=== PATIENT | male | born 1975 | race Caucasian/White ===

== ENCOUNTER → 2020-02-14 09:07 | Outpatient (CLI) | payer OTHER, SELFPAY ==
--- NOTE | 2020-02-14 | DI.US.S_ITS ---
PROCEDURE: US ABDOMEN COMPLETE INDICATIONS: ELEVATED LIVER FUNCTION TESTS TECHNIQUE: Real-time scanning was performed of the abdominal and retroperitoneal organs, with image documentation. COMPARISON: None. FINDINGS: This study is limited by body habitus. The study is further limited by bowel gas. Liver: The liver demonstrates normal size. The liver demonstrates generalized increased echogenicity. This decreases ultrasound sensitivity for detection of hepatic masses. Gallbladder: No findings of gallstones or sludge are seen. The gallbladder wall is not thickened, measuring 3 mm or less. No specific pericholecystic fluid is seen. The sonographic Johnson sign is negative. Biliary ducts: Intrahepatic bile ducts are non-dilated. Extrahepatic bile duct caliber measures 3 mm. Normal is 6-7 mm or less in diameter, or 10 mm or less post-cholecystectomy. Pancreas: Visualized portions of the pancreas are sonographically normal. Spleen: Spleen is normal in size and homogeneous in echotexture. Kidneys: Kidneys are normal in size and echotexture. Right kidney measures 11 cm long; left kidney measures 11.1 cm long. No hydronephrosis or nephrolithiasis. No solid masses. Aorta: Visualized aorta is normal in caliber at less than 3 cm. Iliacs: Proximal common iliac arteries are normal in caliber at less than 2.5 cm. IVC: Intrahepatic inferior vena cava is patent. Miscellaneous: No free abdominal fluid. IMPRESSION: The liver demonstrates increased echogenicity. This finding is nonspecific, yet it is attributed to fatty infiltration. The gallbladder demonstrates a normal sonographic appearance. No biliary dilatation is seen. Dictated by: Anthony Ding M.D. on 02/14/2020 at 9:04 Approved by: Anthony Ding M.D. on 02/14/2020 at 9:05
== END ==
PROVIDERS: PCP Family Medicine; Referring Provider Family Medicine; Visit Provider Family Medicine
DX: R74.0 Nonspecific elevation of levels of transaminase and lactic acid dehydrogenase [LDH] (principal)
CPT/HCPCS: 76700

== ENCOUNTER → 2024-07-12 11:21 | Outpatient (CLI) | payer OTHER, SELFPAY ==
--- NOTE | 2024-07-12 11:25 | DI.RAD.S_ITS ---
PROCEDURE: XR SHOULDER LT MIN 2V INDICATIONS: [id number] TECHNIQUE: 3 views of the shoulder were acquired. COMPARISON: None. FINDINGS: Bones: No fractures or dislocations. No suspicious bony lesions. Visualized ribs appear intact. Soft tissues: No suspicious soft tissue calcifications. IMPRESSION: No acute bony abnormality. Dictated by: Taran Tijerina M.D. on 07/12/2024 at 14:30 Approved by: Taran Tijerina M.D. on 07/12/2024 at 14:30
== END ==
PROVIDERS: PCP Family Medicine; Referring Provider Family Medicine; Visit Provider Family Medicine
DX: M25.512 Pain in left shoulder (principal)
CPT/HCPCS: 73030

== ENCOUNTER → 2024-12-12 10:54 | Outpatient (CLI) | payer OTHER, SELFPAY ==
--- NOTE | 2024-12-12 10:57 | DI.RAD.S_ITS ---
PROCEDURE: XR SINUS <3V INDICATIONS: SINUSITIS TECHNIQUE: Three views of the sinuses were acquired. COMPARISON: None. FINDINGS: Sinuses: The visualized sinuses demonstrate no air-fluid levels or mucosal thickening. The visualized mastoids also appear clear. Bones: No suspicious bony lesions or visible fractures. Nasal septum is midline. IMPRESSION: No air-fluid levels to suggest acute sinusitis. Dictated by: Amparo Reed M.D. on 12/12/2024 at 16:32 Approved by: Amparo Reed M.D. on 12/12/2024 at 16:32
== END ==
PROVIDERS: PCP Family Medicine; Referring Provider Family Medicine; Visit Provider Family Medicine
DX: J01.90 Acute sinusitis, unspecified (principal)
CPT/HCPCS: 70210

== ENCOUNTER → 2025-01-06 08:36 | Outpatient (CLI) | payer OTHER, SELFPAY ==
--- NOTE | 2025-01-06 08:36 | DI.CT.S_ITS ---
PROCEDURE: CT HEAD/BRAIN WO CON INDICATIONS: ACUTE SINUSITIS TECHNIQUE: Noncontrast 4.5 mm thick angled axial sections acquired from the foramen magnum to the vertex, with coronal and sagittal reformats. For radiation dose reduction, the following was used: automated exposure control, adjustment of mA and/or kV according to patient size. COMPARISON: None. FINDINGS: Image quality: Diagnostic. CSF spaces: Basal cisterns are patent. No extra-axial fluid collections. Ventricles are normal in size and shape. Brain: No midline shift. No intracranial mass effect or hemorrhage. Solares- white matter interface is normal. Skull and face: Calvarium and visualized facial bones are intact, without suspicious lesions. Sinuses: Visualized sinuses demonstrate minimal scattered mucosal thickening. No fluid levels. IMPRESSION: No acute intracranial pathology. Dictated by: Yanira Blackman M.D. on 01/06/2025 at 16:32 Approved by: Yanira Blackman M.D. on 01/06/2025 at 16:32
--- NOTE | 2025-01-06 08:36 | DI.CT.S_ITS ---
PROCEDURE: CT SINUS SCREEN WO CON INDICATIONS: ACUTE SINUSITIS TECHNIQUE: Noncontrast 3.0 mm axial images acquired from the frontal sinuses to the mid- sella, with coronal and sagittal reformats. For radiation dose reduction, the following was used: automated exposure control, adjustment of mA and/or kV according to patient size. COMPARISON: [facility], CT, CT HEAD/BRAIN WO CON, 01/06/2025, 8:44. FINDINGS: Image quality: Excellent. Sinuses: Mucous retention cyst versus polyp is present in the left maxillary sinus. Otherwise, very minimal scattered mucosal thickening predominantly in the ethmoid air cells. No fluid levels. Ostiomeatal Complexes: Ostiomeatal complexes demonstrate mucosal thickening with near complete occlusion the right. Minimal mucosal thickening is present on the left without occlusion.. Miscellaneous: Visualized intra-orbital contents are normal. No noe bullosa or paradoxical turbinate curvature. Leftward nasal septal deviation. IMPRESSION: Scattered areas of mucosal thickening as above. Mucosal thickening of the right ostiomeatal complex with occlusion. Dictated by: Yanira Blackman M.D. on 01/06/2025 at 16:21 Approved by: Yanira Blackman M.D. on 01/06/2025 at 16:31
== END ==
PROVIDERS: PCP Family Medicine; Referring Provider Family Medicine; Visit Provider Family Medicine
DX: H65.01 Acute serous otitis media, right ear (principal); J01.90 Acute sinusitis, unspecified; G50.1 Atypical facial pain; J34.2 Deviated nasal septum
CPT/HCPCS: 70450; 70486

== ENCOUNTER → 2025-04-08 10:48 | Outpatient (CLI) | payer OTHER, SELFPAY ==
--- NOTE | 2025-04-08 10:50 | DI.CT.S_ITS ---
PROCEDURE: CT HEAD/BRAIN WO CON INDICATIONS: TRIGEMINAL NEURALGIA TECHNIQUE: Noncontrast 4.5 mm thick angled axial sections acquired from the foramen magnum to the vertex, with coronal and sagittal reformats. For radiation dose reduction, the following was used: automated exposure control, adjustment of mA and/or kV according to patient size. COMPARISON: [facility], CT, CT HEAD/BRAIN WO CON, 01/06/2025, 8:44. FINDINGS: Image quality: Diagnostic. CSF spaces: Basal cisterns are patent. No extra-axial fluid collections. Ventricles are normal in size and shape. Brain: No midline shift. No intracranial mass effect or hemorrhage. Solares- white matter interface is normal. Skull and face: Calvarium and visualized facial bones are intact, without suspicious lesions. Sinuses: Visualized sinuses and mastoids are clear. IMPRESSION: No acute intracranial pathology. Dictated by: Donna Cade MD, PhD on 04/08/2025 at 11:39 Approved by: Donna Cade MD, PhD on 04/08/2025 at 11:40
== END ==
LOC: CT 10:49
PROVIDERS: PCP Family Medicine; Referring Provider Family Medicine; Visit Provider Family Medicine
DX: G50.0 Trigeminal neuralgia (principal)
CPT/HCPCS: 70450